=== PATIENT | male | born 1945 | race Caucasian/White ===

== ENCOUNTER 2018-08-03 07:04 | Observation (INO) | payer OTHER ==
--- NOTE | 2018-08-03 06:41 | PDHPUP ---
History & Physical Update H&P update statement: This history and physical update is based on an assessment of the patient which was completed after admission or registration (within 24 hours), but prior to the surgery/procedure. H&P update: H&P reviewed & patient examined, no change in patient's condition since H&P completed
[~2018-08-03 07:04] MED LIST: ROPIVACAINE 0.2% 80 MG, EPINEPHrine 0.2 MG, KETOROLAC TROMETHAMINE 30 MG in SYRINGE 0 ML IU ONE; TRANEXAMIC ACID 3,000 MG in NS (SYRINGE) 50 ML IRR ONE; TRANEXAMIC ACID 3,000 MG/50 ML BAG IRR ONE
[2018-08-03] MEDS ORDERED: DEXAMETHASONE 4 MG/ML VIAL IVP ONE (07:12)
[2018-08-03] MEDS ORDERED: FAMOTIDINE 20 MG TAB PO ONE (07:12)
[2018-08-03] MEDS ORDERED: ACETAMINOPHEN 325 MG TAB PO ONE (07:12)
[2018-08-03] MEDS ORDERED: ceFAZolin 2 GM/DEXTROSE 100 ML IV ONE (07:12)
[2018-08-03] MEDS ORDERED: LIDOCAINE 1% 2 ML INJ ID PRN (07:13)
[2018-08-03] MEDS ORDERED: LR 1,000 ML IV ONE (07:13)
--- NOTE | 2018-08-03 07:53 | PDANEPAE ---
ANE History of Present Illness right knee OA ANE Past Medical History - Cardiovascular History Hx Hypertension: Yes Hx Arrhythmias: No Hx Chest Pain: No Hx Coronary Artery / Peripheral Vascular Disease: No Hx CHF / Valvular Disease: No Hx Palpitations: No Cardiovascular History Comment: pcp monitors - Pulmonary History Hx COPD: No Hx Asthma/Reactive Airway Disease: No Hx Recent Upper Respiratory Infection: No Hx Oxygen in Use at Home: No Hx Sleep Apnea: No Sleep Apnea Screening Result - Last Documented: Positive Pulmonary History Comment: baldo triggers - Neurologic History Hx Cerebrovascular Accident: No Hx Seizures: No Hx Dementia: No - Endocrine History Hx Diabetes: No Obesity: no - Renal History Hx Renal Disorders: Yes Renal History Comment: bph - Liver History Hx Hepatic Disorders: No - Neurological & Psychiatric Hx Hx Neurological and Psychiatric Disorders: No - Cancer History Hx Cancer: No - Congenital Disorder History Hx Congenital Disorders: No - GI History Hx Gastrointestinal Disorders: No - Other Health History Other Health History: none - Chronic Pain History Chronic Pain: Yes (right knee) - Surgical History Prior Surgeries: appy at 17 yo. back surgery for herniated disc l4-5 at 28 yo. 2014 right shoulder RTC. 2016 left shoulder RTC. 2017 bilateral carpal tunnel ANE Review of Systems Review of systems is: negative Review of Systems: - Exercise capacity METS (RN): 4 METS ANE Patient History - Allergies Allergies/Adverse Reactions: No Known Allergies Allergy (Verified 08/02/18 12:52) - Home Medications Home medications: home medication list seen and reviewed Home Medications: Doxazosin Mesylate [Cardura 4 MG (*)] 4 mg PO HS 07/27/18 [Last Taken 08/02/18 07:30] Glucosamine/Chondroitin [Glucosamine/Chondroitin (*)] 1 each PO Q2D 07/27/18 [ Last Taken 07/20/18] Herbals/Supplements -Info Only 1 ea PO DAILY 07/27/18 [Last Taken 07/20/18] Hydrochlorothiazide [HCTZ (*)] 25 mg PO DAILY 07/27/18 [Last Taken 08/02/18 05: 30] - Anes Hx Anes Hx: no prior problems - Smoking Hx Smoking Status: Former smoker - Family Anes Hx Family Hx Anesthesia Complications: none ANE Labs/Vital Signs - Labs Result Diagrams: 08/03/18 07:40 - Vital Signs Height: 195.58 cm Weight: 97.522 kg ANE Physical Exam - Airway Neck exam: FROM Mallampati Score: Class 1 Mouth exam: normal dental/mouth exam - Pulmonary Pulmonary: no respiratory distress - Cardiovascular Cardiovascular: regular rate and rhythym - ASA Status ASA Status: II ANE Anesthesia Plan Anesthesia Plan: spinal Regional Anesthesia: single shot NB, adductor canal FNB
[2018-08-03] MEDS ORDERED: PROPOFOL/EMULSION 500 MG/50 ML BOTTLE IV ONE (08:16)
[2018-08-03] MEDS ORDERED: LIDOCAINE 2% 5 ML SDV ONE (08:18)
[2018-08-03] MEDS ORDERED: VANCOMYCIN 1 GM VIAL ONE (08:27)
[2018-08-03] MEDS ORDERED: MIDAZOLAM 2 MG/2 ML VIAL ONE (08:55)
[2018-08-03] MEDS ORDERED: BUPIVACAINE/DEXTROSE 7.5MG/ML 2 ML SPINAL AMP SP ONE (08:56)
[2018-08-03] MEDS ORDERED: ROPIVACAINE HCL 150 MG/30 ML INJ ONE (09:44)
[2018-08-03] MEDS ORDERED: fentaNYL 100 MCG/2 ML INJ IVP PRN (09:52)
[2018-08-03] MEDS ORDERED: NALOXONE HCL 0.4 MG/ML INJ IVP PRN (09:52)
[2018-08-03] MEDS ORDERED: ONDANSETRON 4 MG/2 ML VIAL IVP PRN ×2 (09:52→10:33)
[2018-08-03] MEDS ORDERED: ALBUTEROL 3 ML DEYVIAL IH PRN (09:52)
[2018-08-03] MEDS ORDERED: LR 500 ML IV PRN (09:52)
[2018-08-03] MEDS ORDERED: ACETAMINOPHEN 500 MG TAB PO PRN (09:52)
[2018-08-03] MEDS ORDERED: HYDROCODONE/APAP 5/325 TAB PO PRN (09:52)
[2018-08-03] MEDS ORDERED: HYDROmorphONE/DILAUDID 2 MG/ML INJ IVP PRN (09:52)
[2018-08-03] MEDS ORDERED: oxyCODONE IR 5 MG TAB PO PRN ×2 (09:52→10:33)
--- NOTE | 2018-08-03 09:52 | POSTANESTH ---
Post Anesthetic Evaluation Cardiovascular Status: Normal, Stable Respiratory Status: Normal, Stable Level of Consciousness/Mental Status: Can Participate in Eval, Alert and Oriented Pain Control: Adequate, Prn Tx Ordered Nausea/Vomiting Control: Adequate, Prn Tx Ordered Complications Possibly Related to Anesthesia: None Noted
[2018-08-03] MEDS ORDERED: PROPOFOL 200 MG/20 ML VIAL ONE (09:57)
[2018-08-03] MEDS ORDERED: DIPHENOXYLATE/ATROPINE LOMOTIL 1 TAB PO PRN (10:33)
[2018-08-03] MEDS ORDERED: PROMETHAZINE HCL 25 MG SUPPR PR PRN (10:33)
[2018-08-03] MEDS ORDERED: ONDANSETRON DISINTEGRATING 4 MG TAB PO PRN (10:33)
[2018-08-03] MEDS ORDERED: TEMAZEPAM 15 MG CAP PO PRN (10:33)
[2018-08-03] MEDS ORDERED: MAGNESIUM HYDROXIDE 30 ML UDCUP PO PRN (10:33)
[2018-08-03] MEDS ORDERED: CYCLOBENZAPRINE 10 MG TAB PO PRN (10:33)
[2018-08-03] MEDS ORDERED: POLYETHYLENE GLYCOL 3350 17 GM PKT PO PRN (10:33)
[2018-08-03] MEDS ORDERED: diphenhydrAMINE 25 MG CAP PO PRN (10:33)
[2018-08-03] MEDS ORDERED: PROMETHAZINE HCL 25 MG/ML INJ IVP PRN (10:33)
[2018-08-03] MEDS ORDERED: LACTULOSE 20 GM/30 ML UDCUP PO PRN (10:33)
[2018-08-03] MEDS ORDERED: BISACODYL 10 MG SUPP PR PRN (10:33)
[2018-08-03] MEDS ORDERED: METOCLOPRAMIDE 10 MG/2 ML VIAL IVP PRN (10:33)
--- NOTE | 2018-08-03 10:33 | POSTOPPROG ---
Post Op Note Date of Operation: 08/03/18 Surgeon: Etelvina Rubi Mandolin Repairer: biju rubi PA-C Anesthesiologist: dr. ayala Anesthesia: Spinal, Other (Specify) (adductor canal block) Pre-op Diagnosis: right knee OA Post-op Diagnosis: same Indication: right knee pain Procedure: Right medial partial knee arthroplasty Findings: R med MPL Inf/Abcess present in the surg proc area at time of surgery?: No EBL: 50-100
[2018-08-03] MEDS ORDERED: LR 1,000 ML IV SCH (11:00)
[2018-08-03] MEDS: ACETAMINOPHEN 325 MG TAB PO SCH ×3 (14:19→23:58)
[2018-08-03] MEDS: ceFAZolin 2 GM/DEXTROSE 100 ML IV SCH (17:29)
[2018-08-03] MEDS: SENNOSIDES/DOCUSATE SODIUM TAB PO SCH (20:33)
[2018-08-03] MEDS: FAMOTIDINE 20 MG TAB PO SCH (20:34)
[2018-08-03] MEDS: ASPIRIN 81 MG CHEWABLE TAB PO SCH (20:34)
[2018-08-03] MEDS ORDERED: DOXAZOSIN MESYLATE 4 MG TAB PO SCH (21:00)
[2018-08-04] MEDS: ceFAZolin 2 GM/DEXTROSE 100 ML IV SCH
[2018-08-04] MEDS: ACETAMINOPHEN 325 MG TAB PO SCH ×2 (05:50→12:12)
--- NOTE | 2018-08-04 08:39 | SOAPPROG ---
SOAP Progress Note Assessment/Plan: Assessment: Patient is doing well POD 1 s/p R medial PKA Pain management: pain is well controlled on oral pain meds. VTE ppx: recommend aspirin 81 mg BID for 4 weeks, cont SENIA and SCDs Anemia: level is expected initially postop. Asymptomatic. Continue to monitor D/c planning: Patient has done better than anticipated and would like to be discharged to home today. Patient must be released from PT before discharge to home. Plan: 08/04/18 08:38 Subjective: Patient is doing well today, denies SOB, chest pain and n/v Objective: Vital Signs Temp Pulse Resp BP Pulse Ox 36.8 C 75 18 148/86 H 92 08/04/18 07:35 08/04/18 07:35 08/04/18 07:35 08/04/18 07:35 08/04/18 07:35 Laboratory Results 08/04/18 04:50 08/03/18 07:40 08/03/18 08/04/18 08/05/18 05:59 05:59 05:59 Intake Total 2700 Output Total 1535 Balance 1165 RLE: incision dressing is clean and dry, NVI, +pf/df ICD10 Worksheet Patient Problems: Problems Problem Status Onset Primary localized osteoarthritis of right knee Acute
[2018-08-04] MEDS: ASPIRIN 81 MG CHEWABLE TAB PO SCH (08:51)
[2018-08-04] MEDS: FAMOTIDINE 20 MG TAB PO SCH (08:52)
[2018-08-04] MEDS: SENNOSIDES/DOCUSATE SODIUM TAB PO SCH (08:52)
[2018-08-04] MEDS ORDERED: HYDROCHLOROTHIAZIDE 25 MG TAB PO SCH (09:00)
--- NOTE | 2018-08-04 09:40 | GDS ---
ADMISSION DIAGNOSIS: Right knee osteoarthritis. DISCHARGE DIAGNOSIS: Right knee osteoarthritis. PROCEDURE: Right partial knee arthroplasty, medial compartment, robotic-assisted. VTE PROPHYLAXIS: Recommend aspirin 81 mg twice daily for 4 weeks. BRIEF DESCRIPTION OF HOSPITAL STAY: Patient was admitted for an elective joint arthroplasty. The pa yakov tolerated the procedure well and has passed physical therapy. The patient was given appropriat e antibiotic prophylaxis and venous thromboembolism prophylaxis. The patient's pain was well control led on oral pain medication, patient was holding down food, and had urinated. Decision was made to d ischarge the patient. The patient was given post-operative prescriptions pre-operatively. PLAN: Follow up as scheduled in Dr. Smith's office in 3 weeks. /[id number]/MODL
[2018-08-04 11:30] VITALS: BP 150/85
--- NOTE | 2018-08-04 12:46 | GOP ---
DATE OF OPERATION: 08/03/2018 SURGEON: Emanuel Smith MD YOUTH COUNSELOR: Miya Smith, RICHARD. ANESTHESIA: Spinal. PREOPERATIVE DIAGNOSIS: Right knee osteoarthritis. POSTOPERATIVE DIAGNOSIS: Right knee osteoarthritis. PROCEDURE PERFORMED: Right medial compartment partial knee replacement using navigation, robotic ass ist. FINDINGS: ESTIMATED BLOOD LOSS: 30 cc. INDICATIONS: This is a 73 year old male with progressive pain of the right knee unresponsive to cons ervative care. Risks and benefits of surgical intervention were explained in detail. DESCRIPTION OF PROCEDURE: The patient was brought to the operating room and placed on the table in s upine position. Spinal anesthesia was induced without difficulty. A pneumatic tourniquet was applie d about the right proximal thigh and the leg was prepped and draped in sterile fashion. Attention wa s turned first to the distal aspect of the right femur. At 3 cm proximal to the lateral rise of the femur, 2 percutaneous half pins were placed for fixation of the femoral array. In a similar fashion, 2 pins were placed anterolateral on the tibia for fixation of the tibial array. External land madyson ng and registration of the hip center were performed without difficulty. After exsanguination by elevation, the tourniquet was inflated to 250 mmHg. Incision was made from the tibial tuberosity to the superior pole of the patella. Dissection was car ried out through the subcutaneous tissue to the deep fascia using Bovie electrocautery for hemostasis . Medial parapatellar arthrotomy was carried out to the superior pole of the patella. The medial co llateral ligament was elevated and the infrapatellar fat pad was resected. Internal femoral and tibi al registration was carried out without difficulty and the femoral and tibial checkpoints were place d and verified for accuracy. Attention was turned to the femur. The foot print for the size 6 femoral component was cut with the 6 mm bur using the [employer] robotic system and verified for accuracy against the CT based plan. The hole was cut for the femoral post. In a similar fashion, the 6 mm bur was used to cut the foot print for t he size 6 tibial component using the [employer]AN[employer] system and verified for accuracy against the CT based plan. Attention was turned to the posterior aspect of the knee and remnants of the medial meniscus were exc ised. The posterior capsule was injected with ropivacaine, epinephrine and Toradol. Trial reduction was carried out and there was excellent range of motion, alignment and stability using the size 6 fe moral component and the size 6 tibial component, 6 x 8 polyethylene. All trials were then removed. The joint was thoroughly irrigated and carefully dried. One package o f cement and 1 gram of vancomycin were mixed in the vacuum mixer and placed on the fixation surfaces of all components. The components were implanted and all excess cement was thoroughly removed. Impla nt placement was verified against the CT view plan and found to be excellent. The tourniquet was deflated and all bleeders were coagulated. The wound was thoroughly irrigated and closed using interrupted sutures of 2-0 Vicryl for the joint capsule. The subcu was closed with 3-0 Vicryl and the skin with 4-0 Monocryl. Dermabond and Steri-Strips were applied, followed by a compr essive dressing. The patient was then moved from the operating room to the recovery room in good con dition, having tolerated the procedure well. PATHOLOGY: Severe medial compartment osteoarthritis. CASE CLASSIFICATION: Clean. /[id number]/MODL
== END 2018-08-04 13:14 | disposition home or self-care (01) ==
LOC: F3N 07:04
PROVIDERS: ADMIT Orthopaedic Surgery; ATTEND Orthopaedic Surgery
DX: M17.11 Unilateral primary osteoarthritis, right knee (principal); L57.0 Actinic keratosis; N40.0 Benign prostatic hyperplasia without lower urinary tract symptoms; I10 Essential (primary) hypertension; Z87.891 Personal history of nicotine dependence
CPT/HCPCS: 27446; 73560; 97116; 97161; C1713; C1776; G0378; G8978; G8979; G8980; J0171; J0690; J1100; J1885; J2250; J2704; J2795; J3370